=== PATIENT | male | born 1990 | race Caucasian/White ===

== ENCOUNTER 2022-06-25 10:07 | Outpatient (CLI) | payer SELFPAY | END 2022-06-25 10:08 | disposition home or self-care (01) | LOC: NFLDREF 06-27 04:42 | PROVIDERS: PCP Physician Assistant Medical; Referring Provider Physician Assistant Medical; Visit Provider Physician Assistant Medical | DX: F90.9 Attention-deficit hyperactivity disorder, unspecified type (principal) | CPT/HCPCS: 80306 ==

== ENCOUNTER 2022-11-07 17:03 | Outpatient (CLI) | payer SELFPAY ==
[2022-11-07 23:01] LABS: Chlamydia DNA Amplified* NOT DETECTED (No Detected); GC DNA Amplified* NOT DETECTED (No Detected)
== END 2022-11-07 17:04 | disposition home or self-care (01) ==
PROVIDERS: PCP Physician Assistant Medical; Visit Provider Nurse Practitioner Family
DX: Z11.3 Encounter for screening for infections with a predominantly sexual mode of transmission (principal)
CPT/HCPCS: 86703; 86803; 87491; 87529; 87591

== ENCOUNTER 2022-11-13 16:18 | Outpatient (CLI) | payer SELFPAY | END 2022-11-13 16:19 | disposition home or self-care (01) | PROVIDERS: PCP Physician Assistant Medical; Visit Provider Physician Assistant Medical | DX: R21 Rash and other nonspecific skin eruption (principal) | CPT/HCPCS: 87070; 87158; 87593 ==

== ENCOUNTER 2022-11-26 14:34 | Outpatient (CLI) | payer SELFPAY | END 2022-11-26 14:35 | disposition home or self-care (01) | PROVIDERS: PCP Physician Assistant Medical; Visit Provider Physician Assistant Medical | DX: L13.9 Bullous disorder, unspecified (principal) | CPT/HCPCS: 80053; 82180; 82306; 82607; 82746; 83516; 86039; 86140; 86200; 86258; 86364; 86431; 86812; 87252; 87529 ==